=== PATIENT | male | born 1945 | race Caucasian/White ===

== ENCOUNTER 2025-09-30 10:33 | Day surgery (SDC) | payer OTHER ==
[~2025-09-30] VITALS: Ht 167.6 cm; Wt 76.0 kg
[2025-09-30] VITALS (8 sets, daily range): BP systolic 101–137; BP diastolic 54–86; PULSE 63–98; RESP 11–18; TEMP 97.6; O2SAT 95–100
[~2025-09-30 10:33] MED LIST: ARIP5TAB12 PO; FISH1CAP15 PO; HYDR50TA65 PO; LAMO-24 PO; LISI20TA28 PO; OMEP20CA16 PO; ROSU40TA89 PO; TOP100T PO
--- NOTE | 2025-09-30 11:49 | ELECTROCARDIOGRAPH REPORT ---
[facility] Test Date: 2025-09-30 Test Time: 11:43:13 Pat Name: GAYLE WANG Department: [facility] Patient ID: [id number] Room: Gender: M Location Manager: JOE : 1945 Requested By: DARSHANA CHRIS Order Number: [id number] Reading MD: Dr. Grant Will Measurements Intervals [place] Rate: 97 P: -6 WI: 247 QRS: -15 QRSD: 93 T: 28 QT: 345 QTc: 439 Interpretive Statements Sinus rhythm Prolonged WI interval Borderline left axis deviation Electronically Signed On 10-01-2025 13:22:[address] rGant Will Please click the below link to view image of tracing.
[2025-09-30] MEDS ORDERED: LIDOcaine 1% (10mg/ml) 2ml vial ONE (13:00)
[2025-09-30] MEDS ORDERED: verapamil 2.5 mg/ml inj IV ONE (13:00)
[2025-09-30] MEDS ORDERED: fentaNYL/PF 50MCG/1 ML 2ML syringe ONE (13:00)
[2025-09-30] MEDS ORDERED: midazolam 1 mg/ML 2ml injection ONE (13:00)
[2025-09-30] MEDS ORDERED: heparin 1,000unit/ml 10ml vial 10 ML ONE (13:00)
[2025-09-30] MEDS ORDERED: nitroGLYCERIN 500mcg/5mL D5W 5 ML IV ONE (13:18)
[2025-09-30 13:58] LABS: ISTAT HGB ART 11.9 g/dl (14.0-17.9); ISTAT Hct ART 35 %PCV (42-52); ISTAT O2 SATURATION ARTERIAL 90 % (95-98); ISTAT SOURCE ART
[2025-09-30] MEDS ORDERED: HYDROcodone/acetaminophen 5mg/325mg tablet PO PRN (14:50)
[2025-09-30] MEDS ORDERED: HYDROcodone/acetaminophen 10/325mg tab PO PRN (14:50)
--- NOTE | 2025-09-30 16:18 | CARDIAC CATH REPORT ---
Cardiac Cath Report Providers to CC CC: ZULEIKA CHRIS MD; Siddharth Caicedo MD Procedure Comments: 1. Right Heart Catheterization 2. Selective Coronary Angiography 3. Right Brachial vein access 4. Right Radial artery access Brief History/Indications: 79yo man with HTN, HLD, Severe aortic stenosis referred for evaluation prior to consideration of AVR. Techniques: After informed consent was obtained, the patient was brought to the cardiac catheterization laboratory and prepped and draped in usual sterile fashion for left heart catheterization and other procedures mentioned above. The right wrist and right AC fossa were anesthetized with 1% Lidocaine. The right AC IV was exchanged over a wire for an 6fr sheath. The right radial artery accessed via the Seldinger technique after which a 6Fr sheath was placed. The [place] was advanced via the right AC sheath to the right atrium, the right ventricle, the pulmonary artery, and wedge position. Through the 6Fr right radial sheath, a TIG was used to engage the left coronary artery and a [place] right to engage the right coronary artery. At the conclusion of the case the sheath was removed and hemostasis obtained with a VascBand for the radial sheath and manual compression for the brachial sheath. Findings Findings: HEMODYNAMICS: RA: 2 mmHg RV: 28/-, RVEDP 3 mmHg PA: 19/4, mPAP 10 mmHg PCWP: 1 mmHg(V-waves to 4mmHg) TP mmHg DP mmHg Ao: 103/65, MAP 81 mmHg HR: 100 bpm LV: Not obtained due to known severe PA Sat: 64% Ao Sat: 90% CO/CI (Tye): 5.55/3.0 PVR: 1.5 CHAIREZ CORONARY ARTERIES: Rt Dominant LMCA: Luminal Irregularities LAD: Luminal Irregularities D1: Luminal Irregularities D2: Small, Luminal Irregularities D3: Luminal Irregularities LCx: Luminal Irregularities OM1: Luminal Irregularities OM2: Luminal Irregularities RCA: Luminal Irregularities PDA: Luminal Irregularities PL: Luminal Irregularities Results Results: 1. No significant obstructive CAD 2. RRA and RBV access, closed with VascBand and manual compression RECOMMENDATIONS: 1. Agree with referral to [facility] TAVR clinic for evaluation of severe, symptomatic aortic stenosis. DARSHANA CHRIS MD Sep 30, 2025 16:18
[2025-10-01 06:06] LABS: ISTAT HGB MIX 11.9 g/dl (14.0-17.9); ISTAT Hct MIX 35 %PCV (42-52); ISTAT O2 SATURATION MIX VENOUS 64 % (60-80); ISTAT SOURCE VEN
== END 2025-09-30 16:45 | disposition home or self-care (01) ==
LOC: SSTAY O 10:33
PROVIDERS: ATTEND Student in an Organized Health Care Education/Training Program
DX: I35.0 Nonrheumatic aortic (valve) stenosis (principal); R94.31 Abnormal electrocardiogram [ECG] [EKG]; I10 Essential (primary) hypertension; E78.00 Pure hypercholesterolemia, unspecified; K21.9 Gastro-esophageal reflux disease without esophagitis; Z79.899 Other long term (current) drug therapy
CPT/HCPCS: 82803; 85014; 93005; 93456; 99152; J1644; J2003; J2250; J3010; J3490; J7030; Q0163; Q9967; 99153; A6258; A6402; A6449; C1751; C1894

== ENCOUNTER 2025-10-15 08:58 | Outpatient (CLI) | payer OTHER ==
[~2025-10-15 08:58] MED LIST changes: +IODIXANOL 320 MG/ML INFUS..BTL 100ML IV ONE
[2025-10-15 09:33] LABS: MEAN PLATELET VOLUME 7.7 FL (7.4-10.4); RED CELL DISTRIBUTION WIDTH 13.3 % (11.5-14.5)
--- NOTE | 2025-10-15 09:40 | RADIOLOGY REPORT ---
CHEST RADIOGRAPH Indication: TAVR SOB Technique: Frontal and lateral view of the chest was obtained Comparison: None FINDINGS: Lines and Tubes: None Lungs: Clear Pleura: No effusion.No pneumothorax. Cardiomediastinal contours: Post TAVR. Bones: Unremarkable IMPRESSION: No evidence of acute disease.
[2025-10-15 09:50] LABS: APTT 26 SECONDS (22-32); INR 1.0 INR
[2025-10-15 10:15] LABS: CREATININE 1.41 MG/DL (0.60-1.10); PRO BRAIN NATRIURETIC PEPTIDE 71 PG/ML (0-450); TOTAL CARBON DIOXIDE 28.0 MMOL/L (24-32); eGFR 49 ML/MIN
--- NOTE | 2025-10-16 15:13 | RADIOLOGY REPORT ---
EXAM: CTA TAVR CLINICAL HISTORY: AV STENOSIS,SOB,CAROTID STENOSIS TECHNIQUE: Arterial phase spiral acquisitions obtained through the chest, abdomen, and pelvis. Multiplanar reconstructions were generated. Using automated software tools and 3-D reconstructions, imaging analysis of the aortic valve was performed. Dose reduction effected using automated exposure control and iterative reconstruction technique. 2-D and 3-D reformations are generated at a separate independent workstation. All CT scans at this facility are performed using dose modulation techniques as appropriate to a performed exam including the following: automated exposure control with adjustment of the mA and/or kV according to patient size. RADIATION DOSE: CTDI vol: 66 mGy DLP: 2068 mGy-cm Dose information generated by the CT scanner is available in PACS. IV Contrast: 125 cc visipaque 320 COMPARISON: None FINDINGS: Aortic valve annulus diameter: 28.2 x 26.2 mm. Aortic valve area: 5.43 cm2. Perimeter: 83.3 mm. Diameter through left coronary sinus: 35.2 mm. Diameter through right coronary sinus: 34.7 mm. Diameter through the noncoronary sinus: 35.2 mm. Diameter at the sinotubular junction: 33.5 mm. Distance from the right coronary sinus to right coronary orifice: 19.9 mm. Distance from left coronary sinus to left coronary orifice: 15.2 mm. Diameter of ascending aorta: 37.5 mm. Diameter of abdominal aorta: 12.0 mm. Diameter of the right common iliac artery: 7.46 mm. Diameter of the right external iliac artery: 6.99 mm. Diameter of the right common femoral artery: 7.78 mm. Diameter of left common iliac artery: 7.72 mm. Diameter of the left external iliac artery: 7.33 mm. Diameter of the left common femoral artery: 7.73 mm. 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 There is no bronchiectasis or honeycombing. There is no significant pulmonary nodule or mass. There is no pleural effusion. There is no pneumothorax. The visualized thyroid gland is within normal limits. Heart is irving rderline enlarged. There is no thoracic aortic dissection. There is no large central pulmonary embolism. No lymphadenopathy is identified in the chest by size criteria. Spleen: The spleen is not enlarged. Liver: The liver is normal in size and contour. The portal vein is patent. Gallbladder/bile ducts: No biliary dilation is identified. No calcified gallstone is identified Pancreas: Grossly unremarkable Adrenal glands: Unremarkable. Kidneys and ureters: The kidneys enhance symmetrically. No renal mass is identified. There is no hydronephrosis. Urinary bladder: Unremarkable. Reproductive structures: The prostate is enlarged. Peritoneum/gastrointestinal: There is no distention of the large or small bowel. No free fluid is identified. There is scattered colonic diverticulosis without evidence of diverticulitis. The colonic stool burden is small. The appendix is normal. Lymph nodes: No lymphadenopathy is identified by size criteria. Bones: There are degenerative changes throughout the spine. No acute osseous abnormality is identified. Soft tissues: Unremarkable. IMPRESSION: TAVR MEASUREMENTS ABOVE.
--- NOTE | 2025-10-16 17:27 | CARDIOLOGY REPORT ---
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 411.4 cm/s AoV VTI 81.6 cm AO Peak GR. 67.7 mmHg AO Mean GR. 40 mmHg LVOT VTI 24.66 cm LVOT Peak Carlos. 119.6 cm/s SHIVANI (VMAX) 0.97 cm2 SHIVANI (VTI) 1.00 cm2 AV DI 0.30 % LEFT VENTRICLE Normal LV size and function. Mild concentric hypertrophy. LVEF is 70%. GLS - 18 %. RIGHT VENTRICLE RV is normal size and function. ATRIA Left atrium appears mildly dilated. AORTIC VALVE Trileaflet AV appears heavily calcified with significant stenosis demonstrated by reduced excursion and increased transvalvular and ascending aorta turbulance. SHIVANI: 0.97cmsq; Pkv: 4.11 m/sec; Gradients:68 / 40 mmHG. Trivial nsufficiency. Measurements are multi sampled averages due to variable rhythm. MITRAL VALVE Mild MV annular calcification without stenosis. Mild regurgitation by color and spectral flow Doppler. TRICUSPID VALVE TV appears structurally normal with trace regurgitation by color and spectral flow Doppler. PULMONIC VALVE Normal PV without stenosis, physiologic insufficiency by color and spectral flow Doppler. GREAT VESSELS Aortic root is mildly dilated. Ascending aorta is dilated. PERICARDIUM Normal pericardium. No effusion. Other Information Study Quality: Adequate Conclusion Normal LV size and function. Mild concentric hypertrophy. LVEF is 70%. GLS - 18 %. RV is normal size and function. Left atrium appears mildly dilated. Trileaflet AV appears heavily calcified with significant stenosis demonstrated by reduced excursion and increased transvalvular and ascending aorta turbulance. SHIVANI: 0.97cmsq; Pkv: 4.11 m/sec; Gradients: 68 / 40 mmHG. Trivial nsufficiency. Measurements are multi sampled averages due to variable rhythm. Mild MV annular calcification without stenosis. Mild regurgitation by color and spectral flow Doppler. TV appears structurally normal with trace regurgitation by color and spectral flow Doppler. Aortic root is mildly dilated. Ascending aorta is dilated. Normal pericardium. No effusion.
== END 2025-10-15 23:59 | disposition home or self-care (01) ==
LOC: RAD 08:58
PROVIDERS: ATTEND Internal Medicine Cardiovascular Disease
DX: I08.8 Other rheumatic multiple valve diseases (principal); I35.0 Nonrheumatic aortic (valve) stenosis; R06.02 Shortness of breath; I65.29 Occlusion and stenosis of unspecified carotid artery; K57.30 Diverticulosis of large intestine without perforation or abscess without bleeding; M47.814 Spondylosis without myelopathy or radiculopathy, thoracic region
CPT/HCPCS: 36415; 71046; 71275; 74174; 75572; 80053; 83880; 85025; 85610; 85730; 93308; Q9967